=== PATIENT | female | born 1950 | race Caucasian/White ===

== ENCOUNTER 2016-06-19 06:03 | Inpatient (IN) | payer OTHER ==
[~2016-06-19] VITALS: Ht 160 cm; Wt 143.3 kg
[~2016-06-19 06:03] MED LIST: ALEN35TA18; BUDE160A3; FESO8TAB; FLUT50SP13; FURO20TA PO; GABA300C8 PO; INSLANTI; INSU1MIS44; INSUINJ7; IPRASOL44; ISOS10TA2 PO; LEV500T PO; LOSA100T27 PO; METF-316 PO; PANT40TA2 PO; POT20T PO; ROTI6DIS; SERT-160 PO; THEO300T12
[2016-06-19 07:14] LABS: Basophils # (auto) 0 uL; Basophils % (auto) 0.2 % (0.0-2.0); Eosinophils # (auto) 0.2 uL; Hematocrit 43.2 % (36.0-46.0); Hemoglobin 13.9 g/dL (12.2-16.2); Lymphocytes # (auto) 1.5 uL; Lymphocytes % (auto) 16.7 % (10.0-50.0); Mean Corpuscular Hemoglobin 28.7 pg (28.0-32.0); Mean Corpuscular Hgb Conc. 32.3 g/dL (32.0-36.0); Mean Corpuscular Volume 88.8 fL (80.0-100.0); Mean Platelet Volume 8.2 fL (7.4-10.4); Monocytes # (auto) 0.5 uL; Monocytes % (auto) 5.9 % (0.0-12.0); Neutrophils # (auto) 6.7 uL; Neutrophils % (auto) 75.2 % (37.0-80.0); Platelet Count (auto) 271 10^3/uL (140-450); Red Cell Distribution Width 15.6 % (11.6-16.0); White Blood Cell 8.9 10^3/uL (4.4-10.8)
[2016-06-19] MEDS ORDERED: HYDROmorphone HCL 2 MG/ML VL IV ONE ×2 (07:15→09:30)
[2016-06-19] MEDS ORDERED: ONDANSETRON HCL 4 MG/2 ML VIAL IV ONE (07:15)
[2016-06-19 07:29] LABS: INR 0.99 (0.9-1.15); Partial Thromboplastin Time 23.4 sec (22.64-33.71); Prothrombin Time 10.7 sec (9.37-12.3)
[2016-06-19 07:43] LABS: Albumin 3.4 g/dL (3.4-5.0); Anion Gap 6 (5-15); Aspartate Aminotransferase 19 U/L (15-37); BUN/Creatinine Ratio 19.1; Blood Urea Nitrogen 18 mg/dL (7-18); Calcium 8.8 mg/dL (8.5-10.1); Carbon Dioxide 36 mmol/L (21-32); Chloride 95 mmol/L (98-107); GFR African American 77 mL/min; GFR Non-African American 63 mL/min; Glucose 334 mg/dL (74-106); Potassium 4.6 mmol/L (3.5-5.1); Sodium 137 mmol/L (136-145)
[2016-06-19 07:48] LABS: Alkaline Phosphatase 62 U/L (45-117); Bilirubin, Total 0.4 mg/dL (0.2-1.0); Total Protein 7.1 g/dL (6.4-8.2)
[2016-06-19 09:14] LABS: Urine Bilirubin Negative (Negative); Urine Blood Negative /uL (Negative); Urine Color Yellow (Yellow); Urine Ketone Negative (Negative); Urine Nitrite Negative (Negative); Urine RBC <1 /hpf (0 - 4); Urine Urobilinogen Normal (Negative)
[2016-06-19 09:15] LABS: Urine Glucose 4+ mg/dL (Normal)
[2016-06-19] MEDS ORDERED: DEXTROSE (50%) 50ML SYRG IV PRN (09:30)
[2016-06-19] MEDS ORDERED: LACTULOSE 20Gm/30ML SOLN PO PRN (09:30)
[2016-06-19] MEDS ORDERED: ACETAMINOPHEN 500 MG TAB PO PRN (09:30)
[2016-06-19] MEDS ORDERED: PROCHLORPERAZINE EDISYLATE 5 MG/ML 2ML VIAL IV PRN (09:30)
[2016-06-19] MEDS ORDERED: HYDROcodone-ACET 5/325MG TAB PO PRN (09:30)
[2016-06-19] MEDS ORDERED: LORazepam 0.5 MG TAB PO PRN (09:30)
[2016-06-19] MEDS ORDERED: MORPHINE SULF INJ 2 MG/ML SYRINGE 1ML IV PRN (09:30)
[2016-06-19] MEDS ORDERED: TEMAZEPAM 15 MG CAP PO PRN (09:30)
[2016-06-19] MEDS ORDERED: NITROGLYCERIN 0.4 MG SL TAB SL PRN (09:30)
[2016-06-19] MEDS ORDERED: ALBUTEROL SULF 2.5 MG/0.5ML(0.5%) NEB SOLN NEB PRN (09:30)
[2016-06-19] MEDS: SODIUM CHLORIDE 0.9% 1,000 ML IV SCH ×2 (09:43→19:22)
[2016-06-19] MEDS ORDERED: PATIENTS OWN MEDICATION IN SCH ×2 (10:00)
[2016-06-19] MEDS: ROTIGOTINE TOP SCH (10:00)
[2016-06-19] MEDS: FESOTERODINE 8 MG PO SCH (10:00)
[2016-06-19] MEDS: PANTOPRAZOLE 40 MG TAB PO SCH (10:17)
[2016-06-19] MEDS: GABAPENTIN 300 MG CAP PO SCH ×2 (10:17→22:43)
[2016-06-19] MEDS: ISOSORBIDE DINITRATE 10 MG TAB PO SCH ×2 (10:17→22:44)
[2016-06-19] MEDS: METOPROLOL TARTRATE 25 MG TAB PO SCH ×2 (10:17→22:43)
[2016-06-19] MEDS: SERTRALINE HCL 50 MG TAB PO SCH (10:17)
[2016-06-19] MEDS: LOSARTAN POTASSIUM 50 MG TAB PO SCH (10:17)
[2016-06-19] MEDS: NITROGLYCERIN 0.2MG/HR TOPICAL PATCH TD SCH (10:18)
[2016-06-19] MEDS ORDERED: METOPROLOL TARTRATE 25 MG TAB PO ONE (11:45)
[2016-06-19] MEDS ORDERED: LABETALOL HCL 5 MG/ML 4ML SYRINGE IV PRN (11:45)
[2016-06-19] MEDS ORDERED: ASPI325T4 PO (12:29)
[2016-06-19] MEDS ORDERED: ATOR10TA PO (12:29)
[2016-06-19 13:00] VITALS: BP 127/65
[2016-06-19] MEDS: ACCU-CHEK COMFORT CURVE STRIP VI SCH ×2 (13:15→18:00)
[2016-06-19] MEDS: MORPHINE SULF INJ 2 MG/ML SYRINGE 1ML IV PRN ×3 (13:27→22:45)
[2016-06-19] MEDS: InsuLIN REG 1unit/0.01ml Soln (100units/ml) SC SCH ×2 (13:27→18:49)
[2016-06-19 17:00] VITALS: BP 117/69
[2016-06-19] MEDS: IPRATROPIUM BROM 0.5 MG/2.5ML INH SOL NEB SCH (19:49)
[2016-06-19] MEDS: ALBUTEROL SULF 2.5 MG/0.5ML(0.5%) NEB SOLN NEB SCH (19:49)
[2016-06-19 20:00] VITALS: BP 148/63
[2016-06-19 21:26] VITALS: BP 127/65
[2016-06-19 22:00] VITALS: BP 148/63
[2016-06-20] MEDS: InsuLIN REG 1unit/0.01ml Soln (100units/ml) SC SCH ×3 (00:54→11:39)
[2016-06-20] MEDS: IPRATROPIUM BROM 0.5 MG/2.5ML INH SOL NEB SCH ×4 (02:10→19:09)
[2016-06-20] MEDS: MORPHINE SULF INJ 2 MG/ML SYRINGE 1ML IV PRN ×5 (03:58→23:30)
[2016-06-20 04:55] VITALS: BP 134/69
[2016-06-20] MEDS: ACCU-CHEK COMFORT CURVE STRIP VI SCH ×3 (05:41→11:30)
[2016-06-20] MEDS: SODIUM CHLORIDE 0.9% 1,000 ML IV SCH (05:47)
[2016-06-20] MEDS: ALBUTEROL SULF 2.5 MG/0.5ML(0.5%) NEB SOLN NEB SCH ×4 (06:08→19:08)
[2016-06-20 08:59] VITALS: BP 156/77
[2016-06-20] MEDS: FESOTERODINE 8 MG PO SCH (10:00)
[2016-06-20] MEDS: ROTIGOTINE TOP SCH (10:00)
[2016-06-20] MEDS: SERTRALINE HCL 50 MG TAB PO SCH (10:08)
[2016-06-20] MEDS: NITROGLYCERIN 0.2MG/HR TOPICAL PATCH TD SCH (10:09)
[2016-06-20] MEDS: PANTOPRAZOLE 40 MG TAB PO SCH (10:10)
[2016-06-20] MEDS: GABAPENTIN 300 MG CAP PO SCH ×2 (10:10→22:31)
[2016-06-20] MEDS: ISOSORBIDE DINITRATE 10 MG TAB PO SCH ×2 (10:10→22:32)
[2016-06-20] MEDS: METOPROLOL TARTRATE 25 MG TAB PO SCH ×2 (10:11→22:34)
[2016-06-20] MEDS: LOSARTAN POTASSIUM 50 MG TAB PO SCH (10:12)
[2016-06-20 12:37] LABS: Hematocrit 40.2 % (36.0-46.0); Hemoglobin 12.9 g/dL (12.2-16.2)
[2016-06-20 12:49] VITALS: BP 144/75
[2016-06-20] MEDS: LABETALOL HCL 5 MG/ML 4ML SYRINGE IV PRN (16:01)
[2016-06-20 17:00] VITALS: BP 151/82
[2016-06-20 22:00] VITALS: BP 177/83
[2016-06-21] MEDS: IPRATROPIUM BROM 0.5 MG/2.5ML INH SOL NEB SCH ×4 (00:54→19:04)
[2016-06-21] MEDS: ALBUTEROL SULF 2.5 MG/0.5ML(0.5%) NEB SOLN NEB SCH ×4 (00:55→19:04)
[2016-06-21] MEDS: LABETALOL HCL 5 MG/ML 4ML SYRINGE IV PRN (00:57)
[2016-06-21] MEDS: SODIUM CHLORIDE 0.9% 1,000 ML IV SCH (01:22)
[2016-06-21 06:00] VITALS: BP 161/85
[2016-06-21] MEDS: MORPHINE SULF INJ 2 MG/ML SYRINGE 1ML IV PRN ×2 (06:12→19:56)
[2016-06-21] MEDS: ACCU-CHEK COMFORT CURVE STRIP VI SCH ×3 (06:12→20:05)
[2016-06-21] MEDS: InsuLIN REG 1unit/0.01ml Soln (100units/ml) SC SCH ×4 (06:13→20:20)
[2016-06-21 07:02] VITALS: BP 147/83
[2016-06-21 08:04] LABS: Hemoglobin 13.8 g/dL (12.2-16.2)
[2016-06-21] MEDS: FESOTERODINE 8 MG PO SCH (10:00)
[2016-06-21] MEDS: ROTIGOTINE TOP SCH (10:00)
[2016-06-21] MEDS: SERTRALINE HCL 50 MG TAB PO SCH (10:00)
[2016-06-21] MEDS: NITROGLYCERIN 0.2MG/HR TOPICAL PATCH TD SCH (11:44)
[2016-06-21] MEDS: GABAPENTIN 300 MG CAP PO SCH ×2 (11:44→23:36)
[2016-06-21] MEDS: PANTOPRAZOLE 40 MG TAB PO SCH (11:46)
[2016-06-21] MEDS: ISOSORBIDE DINITRATE 10 MG TAB PO SCH ×2 (11:48→23:33)
[2016-06-21] MEDS: LOSARTAN POTASSIUM 50 MG TAB PO SCH (11:50)
[2016-06-21 14:24] VITALS: BP 145/85
[2016-06-21 17:20] VITALS: BP 145/88
[2016-06-21] MEDS ORDERED: LIDOCAINE 1% HCL (LOCAL ANESTH.) INJ 20ML MDV ID ONE (17:45)
[2016-06-21] MEDS: METOPROLOL TARTRATE 25 MG TAB PO SCH (20:07)
[2016-06-21] MEDS ORDERED: MORPHINE SULF INJ 2 MG/ML SYRINGE 1ML IM ONE (20:15)
[2016-06-21] MEDS ORDERED: SODIUM CHLOR 0.9% PF (SALINE LOCK) 10ML VIAL IV SCH (22:00)
[2016-06-21 22:11] VITALS: BP 136/66
[2016-06-22] MEDS: MORPHINE SULF INJ 2 MG/ML SYRINGE 1ML IV PRN ×3 (00:11→04:00)
[2016-06-22] MEDS: METOPROLOL TARTRATE 25 MG TAB PO SCH (00:15)
[2016-06-22] MEDS: InsuLIN REG 1unit/0.01ml Soln (100units/ml) SC SCH (00:17)
[2016-06-22] MEDS: ALBUTEROL SULF 2.5 MG/0.5ML(0.5%) NEB SOLN NEB SCH (00:34)
[2016-06-22] MEDS: IPRATROPIUM BROM 0.5 MG/2.5ML INH SOL NEB SCH (00:34)
== END 2016-06-22 04:00 | disposition short-term general hospital (02) | DRG 542 ==
LOC: ER 06:10 → TELE 06:11 → TELE-WESTW 11:03
PROVIDERS: ADMIT Internal Medicine; ATTEND Internal Medicine
PROC: 02HV33Z Insertion of Infusion Device into Superior Vena Cava, Percutaneous Approach (ICD-10-PCS; principal; 2016-06-21)
DX: M80.852A Other osteoporosis with current pathological fracture, left femur, initial encounter for fracture (principal); G93.41 Metabolic encephalopathy; N18.4 Chronic kidney disease, stage 4 (severe); J96.11 Chronic respiratory failure with hypoxia; Z68.43 Body mass index [BMI] 50.0-59.9, adult; S72.142A Displaced intertrochanteric fracture of left femur, initial encounter for closed fracture; E11.65 Type 2 diabetes mellitus with hyperglycemia; J44.9 Chronic obstructive pulmonary disease, unspecified; I25.10 Atherosclerotic heart disease of native coronary artery without angina pectoris; Z95.5 Presence of coronary angioplasty implant and graft; G25.81 Restless legs syndrome; F41.9 Anxiety disorder, unspecified; G47.30 Sleep apnea, unspecified; E78.5 Hyperlipidemia, unspecified; E11.22 Type 2 diabetes mellitus with diabetic chronic kidney disease; E66.01 Morbid (severe) obesity due to excess calories; G20 Parkinson's disease; I12.9 Hypertensive chronic kidney disease with stage 1 through stage 4 chronic kidney disease, or unspecified chronic kidney disease; W19.XXXA Unspecified fall, initial encounter; Y93.89 Activity, other specified; Y92.89 Other specified places as the place of occurrence of the external cause; Z83.3 Family history of diabetes mellitus; Z87.891 Personal history of nicotine dependence; Z79.4 Long term (current) use of insulin; Z88.2 Allergy status to sulfonamides; Z79.899 Other long term (current) drug therapy; Z88.8 Allergy status to other drugs, medicaments and biological substances; Z90.710 Acquired absence of both cervix and uterus; Z80.0 Family history of malignant neoplasm of digestive organs
CPT/HCPCS: 36415; 36569; 51702; 70450; 71010; 73030; 73502; 80053; 81001; 82962; 83036; 84484; 85014; 85018; 85025; 85610; 85730; 87081; 93005; 93306; 94640; 94660; 94761; 96374; 96375; 96376; J1815; J2405; J3490

== ENCOUNTER 2016-08-09 15:00 | Emergency (ER) | payer OTHER ==
[~2016-08-09] VITALS: Ht 167.6 cm; Wt 113.4 kg
[~2016-08-09 15:00] MED LIST changes: -ALEN35TA18; +ASPI325T4 PO; +ATOR10TA PO; -FLUT50SP13; +GABA-497 PO; -GABA300C8 PO; -INSLANTI; -INSU1MIS44; -INSUINJ7; -IPRASOL44; -METF-316 PO; +METF-372 PO; -POT20T PO; +THEO1TAB3; -THEO300T12
[2016-08-09 21:11] VITALS: BP 112/53
[2016-08-14] MEDS ORDERED: ROPI1TAB22 PO (13:39)
== END 2016-08-09 21:40 | disposition home or self-care (01) ==
LOC: EDBD 15:00 → ER 15:06
DX: M25.562 Pain in left knee (principal); M25.552 Pain in left hip; J44.9 Chronic obstructive pulmonary disease, unspecified; I25.10 Atherosclerotic heart disease of native coronary artery without angina pectoris; E11.9 Type 2 diabetes mellitus without complications; E78.5 Hyperlipidemia, unspecified; I10 Essential (primary) hypertension; Z87.81 Personal history of (healed) traumatic fracture; Z90.710 Acquired absence of both cervix and uterus; Z90.49 Acquired absence of other specified parts of digestive tract; Z87.891 Personal history of nicotine dependence; W18.39XA Other fall on same level, initial encounter; Y93.89 Activity, other specified; Y92.89 Other specified places as the place of occurrence of the external cause; Y99.8 Other external cause status; Z91.041 Radiographic dye allergy status; Z88.1 Allergy status to other antibiotic agents; Z79.899 Other long term (current) drug therapy
CPT/HCPCS: 72131; 72192; 73560; 73562

== ENCOUNTER 2016-11-19 15:18 | Observation (INO) | payer OTHER ==
[~2016-11-19] VITALS: Ht 154.9 cm; Wt 122.5 kg
[~2016-11-19 15:18] MED LIST changes: +ROPI1TAB22 PO
[2016-11-19 16:41] LABS: Basophils # (auto) 0 uL; Basophils % (auto) 0.4 % (0.0-2.0); CONDITION Y; Eosinophils # (auto) 0.2 uL; Eosinophils % (auto) 2.6 % (0.0-7.0); Hematocrit 41.3 % (36.0-46.0); Hemoglobin 13.6 g/dL (12.2-16.2); Lymphocytes # (auto) 1.9 uL; Lymphocytes % (auto) 20.9 % (10.0-50.0); Mean Corpuscular Hemoglobin 28.5 pg (28.0-32.0); Mean Corpuscular Volume 86.4 fL (80.0-100.0); Mean Platelet Volume 8.8 fL (6.9-10.8); Monocytes # (auto) 0.5 uL; Monocytes % (auto) 5.1 % (0.0-12.0); Neutrophils # (auto) 6.4 uL; Platelet Count (auto) 338 10^3/uL (140-450); Red Cell Distribution Width 15.7 % (11.8-14.3)
[2016-11-19 16:49] LABS: Albumin 3.5 g/dL (3.4-5.0); BUN/Creatinine Ratio 17.3; Calcium 9.1 mg/dL (8.5-10.1); Potassium 4.1 mmol/L (3.5-5.1)
[2016-11-19 16:52] LABS: Bilirubin, Total 0.5 mg/dL (0.2-1.0); Total Protein 7.1 g/dL (6.4-8.2)
[2016-11-19] MEDS ORDERED: SODIUM CHLORIDE 0.9% 1,000 ML IVB ONE (18:43)
[2016-11-19 20:01] LABS: Urine Bilirubin Negative (Negative); Urine Blood 2+ /uL (Negative); Urine Color Yellow (Yellow); Urine Glucose Normal (Normal); Urine Ketone Negative (Negative); Urine Nitrite Negative (Negative); Urine RBC 39 /hpf (0 - 4); Urine Urobilinogen Normal (Negative); Urine pH 7.5 (5.0-8.0)
[2016-11-19] MEDS ORDERED: LEVOFLOXACIN 500MG 100 ML IV ONE (20:15)
[2016-11-19 20:35] VITALS: BP 136/71
[2016-11-19] MEDS ORDERED: diphenhdrAMINE HCL 50 MG/1 ML VL ONE (20:39)
[2016-11-19] MEDS ORDERED: diphenhdrAMINE HCL 50 MG/1 ML VL IV ONE (21:00)
== END 2016-11-19 22:43 | disposition home or self-care (01) | DRG 690 ==
LOC: ER 15:21 → OVERFLOW 18:44 → ER 22:43
PROVIDERS: ADMIT Family Medicine; ATTEND Family Medicine
DX: N39.0 Urinary tract infection, site not specified (principal); I11.0 Hypertensive heart disease with heart failure; I50.9 Heart failure, unspecified; G20 Parkinson's disease; J44.9 Chronic obstructive pulmonary disease, unspecified; I25.10 Atherosclerotic heart disease of native coronary artery without angina pectoris; E78.5 Hyperlipidemia, unspecified; E11.9 Type 2 diabetes mellitus without complications; F32.9 Major depressive disorder, single episode, unspecified; F17.200 Nicotine dependence, unspecified, uncomplicated
CPT/HCPCS: 36415; 80053; 81001; 85025; 96361; 96365; 96375; 99285; G0378; J1200; J1956